=== PATIENT | male | born 1935 | race Caucasian/White ===

== ENCOUNTER 2023-07-24 10:00 | Outpatient (RCR) | payer MEDICARE, SELFPAY | END 2023-07-24 10:52 | disposition home or self-care (01) | LOC: HO.PT 10:00 | PROVIDERS: PCP Family Medicine; Visit Provider Physician Assistant | DX: M99.05 Segmental and somatic dysfunction of pelvic region (principal) | CPT/HCPCS: 97110; 97112; 97140; 97162 ==